=== PATIENT | male | born 1990 | race African-American/Black ===

== ENCOUNTER 2018-11-05 15:20 | Emergency (ER) | payer OTHER ==
[~2018-11-05] VITALS: Ht 177.8 cm; Wt 84.4 kg
--- NOTE | 2018-11-05 15:32 | NUR ---
BIB [facility] AND [employer] FOR PSYCH EVAL, PT WAS RUNNING INTO THE [employer] PUPIL. PT ANXIOUS, SCREAMING LOUD. PT SEEN & EVAL'D BY DR. DAVEY. WILL CONT TO MONITOR.
[2018-11-05] MEDS ORDERED: LORAZEPAM INJ 2 MG/ML VIAL ONE (15:51)
[2018-11-05 15:58] LABS: BASOPHILS # (AUTO) 0.1 /CMM (0.0-0.2); BASOPHILS % (AUTO) 1.6 % (0.0-2.0); EOSINOPHILS % (AUTO) 4.6 % (0.0-6.0); HEMATOCRIT 40 % (39-51); HEMOGLOBIN 13.6 g/dL (13.5-17.5); LYMPHOCYTES # (AUTO) 1.9 /CMM (0.8-4.8); LYMPHOCYTES % (AUTO) 35.3 % (20.0-44.0); MEAN CORPUSCULAR HGB CONC 34 g/dl (31.0-36.0); MEAN CORPUSCULAR VOLUME 88 fL (80-96); MONOCYTES # (AUTO) 0.4 /CMM (0.1-1.30); MONOCYTES % (AUTO) 7.2 % (2.0-12.0); NEUTROPHILS # (AUTO) 2.8 /CMM (1.8-8.9); NEUTROPHILS % (AUTO) 51.3 % (43.0-81.0); PLATELET COUNT (AUTO) 306 /CMM (150-450); WHITE BLOOD COUNT (AUTO) 5.5 K/uL (4.3-11.0)
[2018-11-05] MEDS ORDERED: LORAZEPAM INJ 2 MG/ML VIAL IM ONE (16:00)
--- NOTE | 2018-11-05 16:02 | NUR ---
MEDICATED PER ERMD ORDER, PT MIGUE WELL.
[2018-11-05 16:03] LABS: CALCIUM, SERUM 8.1 mg/dL (8.5-10.1); CARBON DIOXIDE 25 mmol/L (21-32); CHLORIDE 108 mmol/L (98-107); CREATININE 1.3 mg/dL (0.6-1.3); GLUCOSE 105 mg/dL (74-106); POTASSIUM 3.4 mmol/L (3.5-5.1); SODIUM SERUM 143 mmol/L (136-145); UREA NITROGEN, BLOOD 9 mg/dL (7-18)
[2018-11-05 16:09] LABS: ALANINE AMINOTRANSFERASE 34 U/L (12-78); ALBUMIN 3.3 g/dL (3.4-5.0); ALCOHOL, BLOOD 147 mg/dL (0-0); ALKALINE PHOSPHATASE 70 U/L (46-116); ASPARTATE AMINOTRANSFERASE 36 U/L (15-37); BILIRUBIN,DIRECT 0.1 mg/dL (0.0-0.2); BILIRUBIN,TOTAL 0.3 mg/dL (0.2-1.0)
[2018-11-05 16:10] LABS: ACETAMINOPHEN < 2 ug/ml (10-30); SALICYLATE 0.5 mg/dL (2.8-20.0)
--- NOTE | 2018-11-05 17:00 | NUR ---
Patient is resting comfortably in bed with eyes closed. Easily aroused. VSS
[2018-11-05 18:46] LABS: APPEARANCE,URINE Clear (CLEAR); BILIRUBIN,URINE SMALL (NEGATIVE); BLOOD, URINE Negative Ery/uL (NEGATIVE); COLOR,URINE Yellow (YELLOW); KETONES,URINE Trace (NEGATIVE); LEUKOCYTE ESTERASE ,URINE Negative (NEGATIVE); NITRITE, URINE Negative (NEGATIVE); PH,URINE 5.5 (5.0-8.0); PROTEIN,URINE Trace mg/dl (NEGATIVE); UGLUCOSE Negative (NEGATIVE); UROBILINOGEN,URINE 0.2 EU/dL (0.2)
[2018-11-05 18:53] LABS: RBC,URINE 0-2 /HPF (0-2); WBC,URINE 0-2 /HPF (0-3)
[2018-11-05 18:55] LABS: BACTERIA,URINE Rare /HPF (None Seen); MUCUS,URINE Many /LPF (None Seen); SQUAMOUS EPITHELIAL CELL,UR Few /HPF (None Seen); URINE AMORPHOUS URATE Few /HPF (None Seen)
--- NOTE | 2018-11-05 19:00 | NUR ---
Patient is resting comfortably in bed with eyes closed. Easily aroused. VSS
--- NOTE | 2018-11-05 19:30 | NUR ---
NUSRAT, DIRECTOR ERP @ [facility] FOR EVAL.
--- NOTE | 2018-11-05 21:00 | NUR ---
Patient discharged to home in stable condition. Written and verbal after care instructions given. Patient verbalizes understanding of instruction.
[2018-11-05 21:26] VITALS: BP 112/68
== END 2018-11-05 21:29 | disposition home or self-care (01) ==
LOC: ER 15:31
DX: F10.129 Alcohol abuse with intoxication, unspecified (principal); F98.9 Unspecified behavioral and emotional disorders with onset usually occurring in childhood and adolescence; Z60.2 Problems related to living alone; Y90.6 Blood alcohol level of 120-199 mg/100 ml
CPT/HCPCS: 36415; 80048; 80076; 80305; 80307; 80329; 81001; 85025; 96372; 99283; G0480; J2060; 81000-TC

== ENCOUNTER 2018-11-28 14:48 | Emergency (ER) | payer OTHER ==
[~2018-11-28] VITALS: Ht 177.8 cm; Wt 79.4 kg
[2018-11-28 15:14] VITALS: BP 126/87
--- NOTE | 2018-11-28 16:02 | NUR ---
REFUSED TO COME IN AND BE SEEN BY PROVIDER
--- NOTE | 2018-11-28 16:05 | NUR ---
PATIENT LEFT PER [place] EMT
== END 2018-11-28 16:04 | disposition left against medical advice (07) ==
LOC: ER 14:50
DX: Z53.21 Procedure and treatment not carried out due to patient leaving prior to being seen by health care provider (principal)

== ENCOUNTER 2019-05-18 19:17 | Emergency (ER) | payer OTHER ==
[~2019-05-18] VITALS: Ht 177.8 cm; Wt 81.6 kg
[2019-05-18 19:35] VITALS: BP 124/88
--- NOTE | 2019-05-18 20:00 | NUR ---
SEEN AND EXAMINED BY .
[2019-05-18] MEDS ORDERED: NEOMY SULF/BACITRAC ZN/POLY 15 GM TUBE TP STA (20:07)
[2019-05-18] MEDS ORDERED: MORPHINE SULFATE INJ 2 MG/ML DISP.SYRIN ONE (20:09)
--- NOTE | 2019-05-18 20:19 | NUR ---
Patient discharged to home in stable condition. Written and verbal after care instructions given. Patient verbalizes understanding of instruction.
--- NOTE | 2019-05-18 20:19 | NUR ---
WOUND DRESSING DONE.
[2019-05-18] MEDS ORDERED: MORPHINE SULFATE INJ 2 MG/ML DISP.SYRIN IM ONE (20:30)
== END 2019-05-18 20:21 | disposition home or self-care (01) ==
LOC: ER 19:20
DX: M79.632 Pain in left forearm (principal); Z60.2 Problems related to living alone
CPT/HCPCS: 96372; 99283; J2270

== ENCOUNTER 2020-03-02 20:34 | Emergency (ER) | payer OTHER ==
[~2020-03-02] VITALS: Ht 177.8 cm; Wt 82.6 kg
[2020-03-02 20:55] VITALS: BP 131/85
--- NOTE | 2020-03-02 21:25 | NUR ---
COVID SWAB COLLECTED AND SENT TO LAB
--- NOTE | 2020-03-02 22:09 | NUR ---
MEDICALLY STABLE FOR DC. D/C'D TO [employer] IN [facility]UST[facility]
== END 2020-03-02 22:12 ==
LOC: ER 20:34
DX: F31.9 Bipolar disorder, unspecified (principal); F20.9 Schizophrenia, unspecified

== ENCOUNTER 2023-09-24 00:31 | Emergency (ER) | payer OTHER ==
[~2023-09-24] VITALS: Ht 177.8 cm; Wt 68.0 kg
[2023-09-24 01:06] VITALS: BP 144/87; TEMP 98.1; O2SAT 99
[2023-09-24] MEDS ORDERED: KETO10TA2 PO (01:22)
[2023-09-24] MEDS ORDERED: KETOROLAC TROMETHAMINE INJ 30 MG/ML VIAL ONE (01:26)
[2023-09-24] MEDS: KETOROLAC TROMETHAMINE INJ 60 MG/2 ML VIAL IM ONE (01:29)
== END 2023-09-24 01:34 | disposition home or self-care (01) ==
LOC: ER 00:34
DX: M76.62 Achilles tendinitis, left leg (principal); F20.9 Schizophrenia, unspecified; F31.9 Bipolar disorder, unspecified; Z79.899 Other long term (current) drug therapy; Z60.2 Problems related to living alone
CPT/HCPCS: 99283; 96372; J1885